=== PATIENT | male | born 1985 | race Caucasian/White ===

== ENCOUNTER 2017-09-12 17:19 | Emergency (ER) | payer BC ==
--- NOTE | 2017-09-12 17:44 | Emergency Department Record ---
History of Present Illness - General Chief complaint: Lower Extremity Pain Stated complaint: RIGHT LOWER LEG INJ Time Seen by Provider: 09/12/17 17:37 Source: Patient Mode of Arrival: Ambulatory Limitations: No limitations - History of Present Illness Initial comments: The patient was ice fishing and twisted his R ankle which caused severe pain. He states he heard his bone break and has been unable to walk on it since. There is no numbness or tingling. MD Complaint: Extremity pain Onset/Timin -: Minutes(s) Location: Right, Ankle Severity scale (1-10): 5 Improves with: Nothing Worsens with: Nothing - Related Data Home Medications Medication Instructions Recorded Confirmed Last Taken Ranitidine HCl [Zantac] 150 mg PO DAILY PRN 09/12/17 09/12/17 Unknown Previous Rx's Medication Instructions Recorded Hydrocodone/Acetaminophen [Camden 1 - 2 each PO .EVERY 4-6 HRS PRN 09/12/17 5-325 Tablet] #20 tablet Allergies Allergy/AdvReac Type Severity Reaction Status Date / Time No Known Drug Allergies Allergy Verified 09/12/17 17:31 Travel Screening - Travel/Exposure Within Last 30 Days Have you traveled within the last 30 days?: No - Travel/Exposure Within Last Year Have you traveled outside the [place] in the last year?: No - Additonal Travel Details Have you been exposed to anyone with a communicable illness?: No - Travel Symptoms Symptom Screening: None Review of Systems Constitutional: Denies: Chills, Fever Past Medical History - SOCIAL HISTORY Smoking Status: Current some day smoker Alcohol Use: Occasional Drug Use: None - RESPIRATORY Hx Respiratory Disorders: No - CARDIOVASCULAR Hx Cardio Disorders: No - NEURO Hx Neuro Disorders: No - GI Hx GI Disorders: Yes Hx Reflux: Yes - Hx Genitourinary Disorders: No - ENDOCRINE Hx Endocrine Disorders: No - MUSCULOSKELETAL Hx Musculoskeletal Disorders: No - PSYCH Hx Psych Problems: No - HEMATOLOGY/ONCOLOGY Hx Hematology/Oncology Disorders: No Family Medical History Any Significant Family History?: No Physical Exam - General General Appearance: Alert, Cooperative, No acute distress - Head Head exam: Atraumatic, Normocephalic, Normal inspection - Eye Eye exam: Normal appearance - Extremities Extremities exam: Normal capillary refill, Tenderness (There is significant tenderness to palpation distal tib and fib.), Other (The R DP pulse is 2+ and equal.). negative: Normal inspection (There is moderate edema to the distal ankle.), Calf tenderness, Full ROM Course Vital Signs 09/12/17 17:22 Temperature 97.6 F Pulse Rate 96 H Respiratory 16 Rate Blood Pressure 154/98 Pulse Ox 95 - Reevaluation(s) Reevaluation #1: Due to the fact the patient will need an operation on his ankle and our Ortho doctor is not available, the patient would like to go to [facility] [place] for further evaluation. I did discuss the case with Dr. Arias in the ER and she does accept the patient in an ER to ER transfer. I did offer to treat the patient's pain with IM Narcotics but he is refusing because he states the pain is not that bad and he does not like needles. I am reluctant to give him anything orally in case he will go to surgery tonight. 09/12/17 18:10 Reevaluation #2: I again offered to treat the patient with IM pain medicines but he still is refusing. 09/12/17 18:13 Reevaluation #3: The Camden script was NOT given to the patient. 09/12/17 18:31 Medical Decision Making - Data Complexity [facility] Data: X-Ray Ordered and/or Reviewed - Radiology Data Radiology results: Report reviewed (R ankle: oblique distal fibula fx with mod mortise widening. ) Disposition Disposition: Transfer Clinical Impression: Ankle fracture, right Disposition: Acute Care Hospital Transfer Transfer To: [facility] [place] Reason For Transfer: Ortho Accepting Physician: Hugo Time Discussed w/Accepting Physician: 18:12 Condition: (2) Stable Instructions: Ankle Fracture (ED) Additional Instructions: Please do not have anything to eat or drink and drive directly to the ER at [facility] [place] for further treatment. Prescriptions: Hydrocodone/Acetaminophen [Camden 5-325 Tablet] 1 - 2 each PO .EVERY 4-6 HRS PRN #20 tablet PRN Reason: Pain Forms: Patient Portal Access Time of Disposition: 18:12 Quality - Quality Measures Quality Measures: N/A - Blood Pressure Screening View Details: Yes Does Patient Have Any of the Following: No Blood Pressure Classification: Hypertensive Reading Systolic Measurement: 148 Diastolic Measurement: 96 Screening for High Blood Pressure: < Pre-Hypertensive BP, F/U Documented > [ [id number]] Pre-Hypertensive Follow-up Interventions: Referral to alternative/primary care provider.
--- NOTE | 2017-09-13 23:09 | RADIOLOGY REPORT ---
EXAM: ANKLE RIGHT 3 VIEWS HISTORY: FELL ON ICE TODAY. PAIN AND SWELLING. TECHNIQUE: AP, oblique, and lateral views of the right ankle. COMPARISON: None. ENCOUNTER: Initial. FINDINGS: There is normal bone mineralization. There is an oblique fracture of the distal fibula with its distal margin at the level of the lateral corner of the ankle mortise. There is mild posterior displacement of the distal fracture fragment by approximately 5 mm. There is a tiny separate fracture fragment at the corner of the lateral ankle mortise. There is associated soft tissue swelling. Additionally, there is widening of the medial ankle mortise joint space measuring 10.8 mm with medial soft tissue swelling. On the lateral view, there is possibility of a nondisplaced posterior malleolus fracture component. IMPRESSION: MILDLY DISPLACED OBLIQUE FRACTURE OF THE DISTAL FIBULA, DESCRIBED ABOVE, WITH ASSOCIATED WIDENING OF THE MEDIAL ANKLE MORTISE JOINT SPACE. A NONDISPLACED FRACTURE OF THE POSTERIOR MALLEOLUS NOT EXCLUDED. JOB NUMBER: [id number] MTDD
== END 2017-09-12 18:29 | disposition short-term general hospital (02) ==
LOC: ER 17:19
DX: S82.831A Other fracture of upper and lower end of right fibula, initial encounter for closed fracture (principal); W00.2XXA Other fall from one level to another due to ice and snow, initial encounter; Y93.29 Activity, other involving ice and snow; Y92.828 Other wilderness area as the place of occurrence of the external cause
CPT/HCPCS: 99283